=== PATIENT | female | born 1945 ===

== ENCOUNTER 2022-11-01 08:45 | Inpatient (IN) | payer OTHER ==
[~2022-11-01] VITALS: Ht 154.9 cm; Wt 49.4 kg
[2022-11-01] MEDS ORDERED: SYNTHROID75 MCG PO (10:24)
[2022-11-01] MEDS ORDERED: SYNTHROID50 MCG PO (10:24)
[2022-11-01] MEDS ORDERED: CRESTOR5 MG (10:31)
[2022-11-04] MEDS ORDERED: FLONASE16 GM (09:38)
[2022-11-04] MEDS ORDERED: OMEGA-3 ACID ETH1 GM (09:38)
== END 2022-11-05 14:23 | disposition home or self-care (01) | DRG 743 ==
LOC: O/R 11-03 07:37 → EDBD 11-03 08:45 → SURG 11-03 08:45
PROVIDERS: ADMIT Obstetrics & Gynecology Gynecologic Oncology; ATTEND Obstetrics & Gynecology Gynecologic Oncology
PROC: 0UT70ZZ Resection of Bilateral Fallopian Tubes, Open Approach (ICD-10-PCS; 2022-11-03)
PROC: 0UT20ZZ Resection of Bilateral Ovaries, Open Approach (ICD-10-PCS; 2022-11-03)
PROC: 07BC0ZZ Excision of Pelvis Lymphatic, Open Approach (ICD-10-PCS; 2022-11-03)
PROC: 0DNW0ZZ Release Peritoneum, Open Approach (ICD-10-PCS; 2022-11-03)
PROC: 0TN70ZZ Release Left Ureter, Open Approach (ICD-10-PCS; 2022-11-03)
PROC: 0TN60ZZ Release Right Ureter, Open Approach (ICD-10-PCS; 2022-11-03)
PROC: 0UT90ZZ Resection of Uterus, Open Approach (ICD-10-PCS; principal; 2022-11-03 13:15)
DX: D25.9 Leiomyoma of uterus, unspecified (principal); Z20.822 Contact with and (suspected) exposure to COVID-19; N73.6 Female pelvic peritoneal adhesions (postinfective)